=== PATIENT | female | born 1950 | race African-American/Black ===

== ENCOUNTER → 2019-02-01 | Outpatient (CLI) | payer MEDICARE, OTHER ==
[~2019-02-01] MED LIST: ADVAIR HFA 230M12 GM INH; AMARYL4 MG PO; COMBIVENT PO; FINACEA50 GM TOP; FLEXERIL PO; FLOMAX0.4 MG PO; KLOR-CON-EF 2525 ME1 PO; LISINOPRIL40 MG PO; LOSARTAN POTAS100 MG PO; METFORMIN HCL500 MG PO; METOLAZONE 2.52.5 MG PO; MOBIC7.5 MG PO; MULTI-BETIC TA1 EACH PO; NEURONTIN 300300 M1 PO; SINGULAIR 10 MG10 M1 PO; SYNTHROID125 MC1 PO; ULTRACET TABLET1 TAB PO; VALIUM5 MG PO; [UNRECOGNIZED DRUG - OTHER] PO
--- NOTE | 2019-02-01 14:04 | EKG ---
[place] [address] ELECTROCARDIOGRAM REPORT Name: HUGH BARONE Room: [facility]#: [id number] Admission: 02/01/19 Attend Phys: SESAR Lopez Discharge: Date of : 52 Report #: [id number] THIS REPORT FOR: //name// [facility] Test Date: 2019-02-01 Test Time: 08:47:28 Pat Name: HUGH BARONE Department: Room: Gender: F Food Service Representative: : 1950 Requested By: Otis Rosado Order Number: [id number] Araceli MD: Raulito Gavin Measurements Intervals [place] Rate: 95 P: 52 FL: 165 QRS: 47 QRSD: 101 T: 55 QT: 423 QTc: 532 Interpretive Statements Sinus rhythm Ventricular bigeminy Probable left ventricular hypertrophy Baseline wander in lead(s) II,aVF No previous ECG available for comparison Electronically Signed On 02-01-2019 14:03:57 CDT by Raulito Gavin [email or web address] <ELECTRONICALLY SIGNED> By: Raulito Gavin MD, [facility] 02/01/19 1403 [id number] Raulito Gavin MD, FACC /EPI
== END | disposition home or self-care (01) ==
LOC: M.SUR 08:09 → M.LAB 08:09 → EDSTATUS 09:30 → M.SUR 14:55
DX: M25.572 Pain in left ankle and joints of left foot (principal); Z53.8 Procedure and treatment not carried out for other reasons; E03.9 Hypothyroidism, unspecified; J45.909 Unspecified asthma, uncomplicated; M19.90 Unspecified osteoarthritis, unspecified site; G62.9 Polyneuropathy, unspecified; I10 Essential (primary) hypertension; E11.9 Type 2 diabetes mellitus without complications; E66.09 Other obesity due to excess calories; Z88.8 Allergy status to other drugs, medicaments and biological substances; Z98.890 Other specified postprocedural states; Z79.899 Other long term (current) drug therapy